=== PATIENT | male | born 1940 | race Caucasian/White ===

== ENCOUNTER → 2017-01-12 | Outpatient (REF) | payer OTHER, MEDICARE ==
[~2017-01-12] MED LIST: /AUGM875TA OR; /MOM400 PO; ALEVE PO; BABY81CH PO; CIPR500T4 OR; CIPR500T89 PO; CLON0.5T OR; DOCU100C PO; FLEEENE4 PR; GLYB5TAB5 PO; METF500T4 PO; MIRA255PW PO; MULTIVIT PO; NORCOTAB PO; OXYB5TAB4 OR; OXYB5TAB5 OR; PRIN10TA PO; RAPAFLO PO; VYTO10TA5 OR; VYTO10TA5 PO
[2017-01-12 11:45] LABS: MEAN CORPUSCULAR HEMOGLOBIN 29.4 pg (27.0-33.0); MEAN CORPUSCULAR HGB CONC 34.6 g/dl (32.0-36.5); WHITE BLOOD COUNT 6.8 K/mm3 (4.0-10.0)
[2017-01-12 12:48] LABS: ALBUMIN 4.2 GM/DL (3.2-5.2); ALBUMIN/GLOBULIN RATIO 1.24 (1.00-1.93); ALKALINE PHOSPHATASE 67 U/L (45-117); ALT/SGPT 26 U/L (12-78); ANION GAP 8 MEQ/L (8-16); AST/SGOT 16 U/L (15-37); BILIRUBIN,TOTAL 0.4 MG/DL (0.2-1.0); BLOOD UREA NITROGEN 20 MG/DL (7-18); CALCIUM LEVEL 9.3 MG/DL (8.8-10.2); CARBON DIOXIDE LEVEL 29 MEQ/L (21-32); CHLORIDE LEVEL 102 MEQ/L (98-107); CHOLESTEROL LEVEL 136 MG/DL (<200); CREATININE FOR GFR 1.22 MG/DL (0.70-1.30); GLOMERULAR FILTRATION RATE > 60.0 (>42); GLUCOSE, FASTING 176 MG/DL (83-110); SODIUM LEVEL 139 MEQ/L (136-145); TOTAL PROTEIN 7.6 GM/DL (6.4-8.2); TRIGLYCERIDES LEVEL 242 MG/DL (<150)
== END ==
LOC: M SFHCPLAZ 10:02
PROVIDERS: ATTEND Family Medicine
DX: N18.3 Chronic kidney disease, stage 3 (moderate) (principal); E11.21 Type 2 diabetes mellitus with diabetic nephropathy; E78.5 Hyperlipidemia, unspecified

== ENCOUNTER → 2017-07-07 | Outpatient (REF) | payer OTHER, MEDICARE | LOC: M SFHCPLAZ 08:58 | PROVIDERS: ATTEND Family Medicine | DX: E11.21 Type 2 diabetes mellitus with diabetic nephropathy (principal) ==

== ENCOUNTER → 2017-11-21 | Outpatient (REF) | payer OTHER, MEDICARE ==
[2017-11-21 14:12] LABS: FERRITIN 46 NG/ML (26-388); IRON (FE) 128 UG/DL (65-175); PERCENT SATURATION 38.8 % (19.7-50.0); TOTAL IRON BINDING CAPACITY 330 UG/DL (250-450)
== END ==
LOC: M LAB REF 12:52
DX: N18.9 Chronic kidney disease, unspecified (principal); D63.1 Anemia in chronic kidney disease

== ENCOUNTER → 2018-01-04 | Outpatient (REF) | payer OTHER, MEDICARE ==
[2018-01-04 16:20] LABS: PROSTATIC SPECIFIC AG MONITOR < 0.01 NG/ML (< 4.0)
== END ==
LOC: M SMT 15:46
DX: Z85.46 Personal history of malignant neoplasm of prostate (principal)

== ENCOUNTER → 2018-03-15 | Outpatient (REF) | payer OTHER, MEDICARE ==
[2018-03-15 23:41] LABS: BLOOD UREA NITROGEN 28 MG/DL (7-18); CREATININE FOR GFR 1.35 MG/DL (0.70-1.30); GLOMERULAR FILTRATION RATE 54.8 (>42); GLUCOSE, FASTING 198 MG/DL (70-100); SODIUM LEVEL 138 MEQ/L (136-145)
[2018-03-15 23:42] LABS: ANION GAP 6 MEQ/L (8-16); CALCIUM LEVEL 8.7 MG/DL (8.8-10.2); CARBON DIOXIDE LEVEL 26 MEQ/L (21-32); CHLORIDE LEVEL 106 MEQ/L (98-107); POTASSIUM SERUM 5.5 MEQ/L (3.5-5.1)
[2018-03-16 23:29] LABS: ESTIMATED AVERAGE GLUCOSE 194 MG/DL (60-110); HEMOGLOBIN A1c 8.4 %
== END ==
LOC: M SFHCPLAZ 09:38
DX: E11.21 Type 2 diabetes mellitus with diabetic nephropathy (principal); N18.3 Chronic kidney disease, stage 3 (moderate)

== ENCOUNTER → 2018-03-20 | Outpatient (REF) | payer OTHER, MEDICARE ==
[2018-03-20 16:22] LABS: ANION GAP 8 MEQ/L (8-16); BLOOD UREA NITROGEN 23 MG/DL (7-18); CARBON DIOXIDE LEVEL 28 MEQ/L (21-32); CHLORIDE LEVEL 103 MEQ/L (98-107); CREATININE FOR GFR 1.23 MG/DL (0.70-1.30); GLOMERULAR FILTRATION RATE > 60.0 (>42); GLUCOSE, FASTING 103 MG/DL (70-100); SODIUM LEVEL 139 MEQ/L (136-145)
== END ==
LOC: M SFHCPLAZ 13:27
DX: E87.5 Hyperkalemia (principal)
CPT/HCPCS: 80048

== ENCOUNTER → 2018-06-29 | Outpatient (REF) | payer OTHER, MEDICARE ==
[2018-06-29 20:03] LABS: APPEARANCE, URINE CLOUDY (CLEAR); BACTERIA, URINE AUTO 2+ (NEGATIVE); BILIRUBIN, URINE AUTO NEGATIVE (NEGATIVE); BLOOD, URINE BLOOD 1+ (NEGATIVE); COLOR, URINE YELLOW (YELLOW); GLUCOSE, URINE (UA) AUTO 3+ mg/dL (NEGATIVE); KETONE, URINE AUTO NEGATIVE (NEGATIVE); LEUKOCYTE ESTERASE, URINE AUTO 3+ (NEGATIVE); MUCUS, URINE SMALL (NEGATIVE); NITRITE, URINE AUTO NEGATIVE (NEGATIVE); PROTEIN, URINE AUTO NEGATIVE (NEGATIVE); RBC, URINE AUTO 15 /HPF (0-3); SPECIFIC GRAVITY URINE AUTO 1.011 (1.002-1.035); SQUAMOUS EPITHELIAL CELL UR AU 0 /HPF (0-6); UROBILINOGEN, URINE AUTO 0.2 mg/dL (0.0-2.0); WBC, URINE AUTO TNTC /HPF (0-3)
== END ==
LOC: M SMT 17:02
DX: R82.90 Unspecified abnormal findings in urine (principal)

== ENCOUNTER → 2018-08-18 | Outpatient (REF) | payer OTHER, MEDICARE | LOC: M SMT 17:10 | DX: N31.9 Neuromuscular dysfunction of bladder, unspecified (principal) | CPT/HCPCS: 87186 ==

== ENCOUNTER → 2018-09-11 | Outpatient (REF) | payer OTHER, MEDICARE ==
[2018-09-11 18:18] LABS: APPEARANCE, URINE CLOUDY (CLEAR); BACTERIA, URINE AUTO 2+ (NEGATIVE); BILIRUBIN, URINE AUTO NEGATIVE (NEGATIVE); BLOOD, URINE BLOOD 2+ (NEGATIVE); COLOR, URINE YELLOW (YELLOW); GLUCOSE, URINE (UA) AUTO NEGATIVE (NEGATIVE); KETONE, URINE AUTO NEGATIVE (NEGATIVE); LEUKOCYTE ESTERASE, URINE AUTO 3+ (NEGATIVE); MUCUS, URINE SMALL (NEGATIVE); NITRITE, URINE AUTO NEGATIVE (NEGATIVE); PROTEIN, URINE AUTO 2+ mg/dL (NEGATIVE); RBC, URINE AUTO 44 /HPF (0-3); SPECIFIC GRAVITY URINE AUTO 1.016 (1.002-1.035); SQUAMOUS EPITHELIAL CELL UR AU 0 /HPF (0-6); UROBILINOGEN, URINE AUTO 0.2 mg/dL (0.0-2.0); WBC, URINE AUTO TNTC /HPF (0-3); YEAST LIKE CELL URINE AUTO SMALL
[2018-09-14 08:06] LABS: BETA 2 MICROGLOBULIN 2.4 mg/L (0.6-2.4)
== END ==
LOC: M SFHCPLAZ 08:53
DX: N39.0 Urinary tract infection, site not specified (principal); E78.5 Hyperlipidemia, unspecified; N31.9 Neuromuscular dysfunction of bladder, unspecified
CPT/HCPCS: 82232

== ENCOUNTER → 2018-09-13 | Outpatient (REF) | payer OTHER, MEDICARE ==
[2018-09-13 12:46] LABS: BASO % 0.5 % (0.0-1.0); EOS # 0.2 10^3/uL (0.0-0.50); EOS % 2.1 % (0.0-3.0); HEMATOCRIT 36.4 % (42.0-52.0); HEMOGLOBIN 12.1 g/dl (13.5-17.5); IMMATURE GRANULOCYTE % 0.7 % (0-3.0); LYMPH # 1.5 10^3/uL (1.5-4.5); MEAN CORPUSCULAR HGB CONC 33.2 g/dl (32.0-36.5); MEAN CORPUSCULAR VOLUME 90.1 fl (80.0-96.0); MONO # 0.7 10^3/uL (0.0-0.8); MONO % 9.5 % (0.0-5.0); NEUTROPHILS # 5.2 10^3/uL (1.8-7.7); NEUTROPHILS % 67.2 % (36.0-66.0); PLATELET COUNT, AUTOMATED 280 10^3/uL (150-450); RED BLOOD COUNT 4.04 10^6/uL (4.30-6.10); RED CELL DISTRIBUTION WIDTH 12.8 % (11.5-14.5); WHITE BLOOD COUNT 7.7 10^3/uL (4.0-10.0)
[2018-09-13 12:53] LABS: ALBUMIN 3.8 GM/DL (3.2-5.2); ALBUMIN/GLOBULIN RATIO 1.15 (1.00-1.93); ALKALINE PHOSPHATASE 54 U/L (45-117); ALT/SGPT 24 U/L (12-78); ANION GAP 7 MEQ/L (8-16); AST/SGOT 13 U/L (7-37); BILIRUBIN,TOTAL 0.3 MG/DL (0.2-1.0); BLOOD UREA NITROGEN 20 MG/DL (7-18); CALCIUM LEVEL 8.4 MG/DL (8.8-10.2); CARBON DIOXIDE LEVEL 25 MEQ/L (21-32); CHLORIDE LEVEL 108 MEQ/L (98-107); CHOLESTEROL LEVEL 123 MG/DL (<200); CPK CREATINE PHOSPHOKINASE 73 U/L (39-308); CREATININE FOR GFR 1.23 MG/DL (0.70-1.30); FERRITIN 67 NG/ML (26-388); GLOMERULAR FILTRATION RATE > 60.0 (>42); GLUCOSE, FASTING 122 MG/DL (70-100); HDL CHOLESTEROL 26 MG/DL (>40); IRON (FE) 73 UG/DL (65-175); LDL CHOLESTEROL 52 MG/DL (<100); NON-HDL-C 97 MG/DL; PERCENT SATURATION 23.3 % (19.7-50.0); POTASSIUM SERUM 5.3 MEQ/L (3.5-5.1); SODIUM LEVEL 140 MEQ/L (136-145); TOTAL IRON BINDING CAPACITY 313 UG/DL (250-450); TOTAL PROTEIN 7.1 GM/DL (6.4-8.2); TRIGLYCERIDES LEVEL 225 MG/DL (<150)
[2018-09-13 13:00] LABS: VITAMIN B12 LEVEL 380 PG/ML (247-911)
[2018-09-13 14:04] LABS: ESTIMATED AVERAGE GLUCOSE 169 MG/DL (60-110); HEMOGLOBIN A1c 7.5 %
[2018-09-15 00:06] LABS: BETA 2 MICROGLOBULIN 2.6 mg/L (0.6-2.4)
== END ==
LOC: M SFHCPLAZ 08:50
DX: E11.21 Type 2 diabetes mellitus with diabetic nephropathy (principal); I11.9 Hypertensive heart disease without heart failure; N18.3 Chronic kidney disease, stage 3 (moderate); E78.5 Hyperlipidemia, unspecified; D63.8 Anemia in other chronic diseases classified elsewhere

== ENCOUNTER 2018-09-21 15:37 | Inpatient (IN) | payer OTHER, MEDICARE ==
[2018-09-21] MEDS: HumaLOG INSULIN (NovoLOG) PER UNIT SC (02:39)
[2018-09-21] MEDS ORDERED: MORPHINE 4 MG/ML 1ML VIAL/SYRINGE (J2270) IV ×2 (16:15→22:00)
[2018-09-21 17:35] LABS: BASO % 0.4 % (0.0-1.0); EOS # 0.2 10^3/uL (0.0-0.50); HEMOGLOBIN 12.7 g/dl (13.5-17.5); IMMATURE GRANULOCYTE % 0.4 % (0-3.0); LYMPH # 1.3 10^3/uL (1.5-4.5); LYMPH % 16.8 % (24.0-44.0); MEAN CORPUSCULAR HGB CONC 33.4 g/dl (32.0-36.5); MEAN CORPUSCULAR VOLUME 89.6 fl (80.0-96.0); MONO # 0.5 10^3/uL (0.0-0.8); MONO % 7.2 % (0.0-5.0); NEUTROPHILS # 5.5 10^3/uL (1.8-7.7); NEUTROPHILS % 73.2 % (36.0-66.0); PLATELET COUNT, AUTOMATED 304 10^3/uL (150-450); RED BLOOD COUNT 4.24 10^6/uL (4.30-6.10); RED CELL DISTRIBUTION WIDTH 13.2 % (11.5-14.5); WHITE BLOOD COUNT 7.5 10^3/uL (4.0-10.0)
[2018-09-21] MEDS: NS 1,000 ML IV (17:47)
[2018-09-21 18:02] LABS: ALBUMIN 4.2 GM/DL (3.2-5.2); ALBUMIN/GLOBULIN RATIO 1.27 (1.00-1.93); ALKALINE PHOSPHATASE 65 U/L (45-117); ALT/SGPT 24 U/L (12-78); ANION GAP 8 MEQ/L (8-16); AST/SGOT 19 U/L (7-37); BILIRUBIN,DIRECT < 0.1 MG/DL (0.0-0.2); BILIRUBIN,TOTAL 0.3 MG/DL (0.2-1.0); BLOOD UREA NITROGEN 29 MG/DL (7-18); CALCIUM LEVEL 8.6 MG/DL (8.8-10.2); CARBON DIOXIDE LEVEL 22 MEQ/L (21-32); CHLORIDE LEVEL 106 MEQ/L (98-107); GLOMERULAR FILTRATION RATE 39.2 (>42); GLUCOSE, FASTING 171 MG/DL (70-100); LIPASE 283 U/L (73-393); POTASSIUM SERUM 6.4 MEQ/L (3.5-5.1); SODIUM LEVEL 136 MEQ/L (136-145); TOTAL PROTEIN 7.5 GM/DL (6.4-8.2)
[2018-09-21 20:00] LABS: KETONE, URINE AUTO RFX NEGATIVE (NEGATIVE); NITRITE, URINE AUTO RFX NEGATIVE (NEGATIVE); RBC, URINE AUTO RFX 21 /HPF (0-3); SPECIFIC GRAVITY UR AUTO RFX 1.015 (1.002-1.035); SQUAM EPITHELIAL CELL UR AURFX 0 /HPF (0-6); YEAST LIKE CELL URINE AUTO RFX SMALL
[2018-09-21 20:03] LABS: LEUKOCYTE ESTERASE UR AUTO RFX 3+ (NEGATIVE); WBC, URINE AUTO RFX TNTC /HPF (0-3)
[2018-09-21] MEDS: SOD POLYSTYRENE SULFONATE SUSP 15 GM/60 ML UD PO (20:20)
[2018-09-21] MEDS ORDERED: GLUCAGON FOR INJ 1 MG VIAL (J1610) SC (22:00)
[2018-09-21] MEDS: HEPARIN SOD (PORCINE) 5000 UNITS/ML VIAL SC (22:00)
[2018-09-21] MEDS ORDERED: DEXTROSE 50% 50 ML SYRINGE IV (22:00)
[2018-09-21] MEDS ORDERED: ACETAMINOPHEN TAB 650MG DOSE (2X325MG) PO (22:00)
[2018-09-21] MEDS ORDERED: PERCOCET 5MG/325MG TAB PO (22:00)
[2018-09-21] MEDS ORDERED: GLUCOSE 4 GM CHEW TABLET PO (22:00)
[2018-09-21 23:59] LABS: ANION GAP 7 MEQ/L (8-16); BLOOD UREA NITROGEN 26 MG/DL (7-18); CARBON DIOXIDE LEVEL 20 MEQ/L (21-32); CHLORIDE LEVEL 112 MEQ/L (98-107); CREATININE FOR GFR 1.61 MG/DL (0.70-1.30); GLOMERULAR FILTRATION RATE 44.6 (>42); GLUCOSE, FASTING 239 MG/DL (70-100); POTASSIUM SERUM 5.3 MEQ/L (3.5-5.1); SODIUM LEVEL 139 MEQ/L (136-145)
[2018-09-22 02:15] LABS: BEDSIDE GLUCOSE 146 MG/DL (83-110)
[2018-09-22] MEDS: SIMVASTATIN 40 MG TAB PO ×2 (03:06→20:24)
[2018-09-22] MEDS: ASPIRIN 81 MG ENTERIC TAB PO ×2 (03:06→20:24)
[2018-09-22] MEDS: LACTOBACILLUS ACIDOPHILUS CAP (BACID) PO ×3 (03:06→20:24)
[2018-09-22] MEDS: NS 1,000 ML IV ×4 (03:07→17:56)
[2018-09-22] MEDS: HEPARIN SOD (PORCINE) 5000 UNITS/ML VIAL SC ×3 (05:14→20:25)
[2018-09-22 06:45] LABS: HEMATOCRIT 31.4 % (42.0-52.0); MEAN CORPUSCULAR HEMOGLOBIN 29.6 pg (27.0-33.0); MEAN CORPUSCULAR HGB CONC 33.8 g/dl (32.0-36.5); MEAN CORPUSCULAR VOLUME 87.7 fl (80.0-96.0); PLATELET COUNT, AUTOMATED 241 10^3/uL (150-450); RED BLOOD COUNT 3.58 10^6/uL (4.30-6.10); RED CELL DISTRIBUTION WIDTH 12.8 % (11.5-14.5); WHITE BLOOD COUNT 5.8 10^3/uL (4.0-10.0)
[2018-09-22 06:54] LABS: HEMOGLOBIN 10.6 g/dl (13.5-17.5)
[2018-09-22 07:15] LABS: ANION GAP 6 MEQ/L (8-16); BLOOD UREA NITROGEN 21 MG/DL (7-18); CARBON DIOXIDE LEVEL 24 MEQ/L (21-32); CHLORIDE LEVEL 112 MEQ/L (98-107); CREATININE FOR GFR 1.38 MG/DL (0.70-1.30); GLOMERULAR FILTRATION RATE 53.3 (>42); GLUCOSE, FASTING 113 MG/DL (70-100); POTASSIUM SERUM 4.8 MEQ/L (3.5-5.1); SODIUM LEVEL 142 MEQ/L (136-145)
[2018-09-22] MEDS: OYSTER SHELL CALCIUM 500 MG TAB PO (08:43)
[2018-09-22] MEDS: HumaLOG INSULIN (NovoLOG) PER UNIT SC ×4 (08:44→20:24)
[2018-09-22 11:31] LABS: BEDSIDE GLUCOSE 168 MG/DL (83-110)
[2018-09-22 16:49] LABS: BEDSIDE GLUCOSE 241 MG/DL (83-110)
[2018-09-22 20:07] LABS: BEDSIDE GLUCOSE 204 MG/DL (83-110)
[2018-09-23] MEDS: HEPARIN SOD (PORCINE) 5000 UNITS/ML VIAL SC ×3 (05:29→20:31)
[2018-09-23 06:23] LABS: HEMATOCRIT 32.2 % (42.0-52.0); HEMOGLOBIN 10.9 g/dl (13.5-17.5); MEAN CORPUSCULAR HEMOGLOBIN 29.9 pg (27.0-33.0); MEAN CORPUSCULAR HGB CONC 33.9 g/dl (32.0-36.5); MEAN CORPUSCULAR VOLUME 88.2 fl (80.0-96.0); PLATELET COUNT, AUTOMATED 232 10^3/uL (150-450); RED BLOOD COUNT 3.65 10^6/uL (4.30-6.10); RED CELL DISTRIBUTION WIDTH 12.6 % (11.5-14.5); WHITE BLOOD COUNT 4.6 10^3/uL (4.0-10.0)
[2018-09-23 06:48] LABS: ANION GAP 10 MEQ/L (8-16); BLOOD UREA NITROGEN 18 MG/DL (7-18); CALCIUM LEVEL 7.9 MG/DL (8.8-10.2); CARBON DIOXIDE LEVEL 22 MEQ/L (21-32); CHLORIDE LEVEL 110 MEQ/L (98-107); CREATININE FOR GFR 1.08 MG/DL (0.70-1.30); GLOMERULAR FILTRATION RATE > 60.0 (>42); GLUCOSE, FASTING 151 MG/DL (70-100); POTASSIUM SERUM 4.7 MEQ/L (3.5-5.1); SODIUM LEVEL 142 MEQ/L (136-145)
[2018-09-23 07:36] LABS: ALBUMIN 3.3 GM/DL (3.2-5.2)
[2018-09-23] MEDS: HumaLOG INSULIN (NovoLOG) PER UNIT SC ×4 (08:43→20:30)
[2018-09-23] MEDS: LACTOBACILLUS ACIDOPHILUS CAP (BACID) PO ×2 (08:43→20:30)
[2018-09-23] MEDS: FERROUS SULFATE 325MG TAB PO (08:43)
[2018-09-23 11:24] LABS: BEDSIDE GLUCOSE 153 MG/DL (83-110)
[2018-09-23] MEDS: CALCIUM CARBONATE 500 MG CHEW U/D PO (13:06)
[2018-09-23 14:13] LABS: PSA TOTAL <0.1 ng/mL (0.0-4.0)
[2018-09-23 16:29] LABS: BEDSIDE GLUCOSE 196 MG/DL (83-110)
[2018-09-23 20:22] LABS: BEDSIDE GLUCOSE 188 MG/DL (83-110)
[2018-09-23] MEDS: SIMVASTATIN 40 MG TAB PO (20:30)
[2018-09-23] MEDS: ASPIRIN 81 MG ENTERIC TAB PO (20:30)
[2018-09-24] MEDS: HEPARIN SOD (PORCINE) 5000 UNITS/ML VIAL SC ×3 (05:41→21:15)
[2018-09-24 06:16] LABS: ANION GAP 7 MEQ/L (8-16); BLOOD UREA NITROGEN 16 MG/DL (7-18); CALCIUM LEVEL 8.4 MG/DL (8.8-10.2); CARBON DIOXIDE LEVEL 24 MEQ/L (21-32); CHLORIDE LEVEL 109 MEQ/L (98-107); CREATININE FOR GFR 1.06 MG/DL (0.70-1.30); GLOMERULAR FILTRATION RATE > 60.0 (>42); GLUCOSE, FASTING 179 MG/DL (70-100); POTASSIUM SERUM 4.6 MEQ/L (3.5-5.1); SODIUM LEVEL 140 MEQ/L (136-145)
[2018-09-24 06:17] LABS: HEMATOCRIT 34.4 % (42.0-52.0); HEMOGLOBIN 11.6 g/dl (13.5-17.5); MEAN CORPUSCULAR HEMOGLOBIN 29.8 pg (27.0-33.0); MEAN CORPUSCULAR HGB CONC 33.7 g/dl (32.0-36.5); MEAN CORPUSCULAR VOLUME 88.4 fl (80.0-96.0); PLATELET COUNT, AUTOMATED 256 10^3/uL (150-450); RED BLOOD COUNT 3.89 10^6/uL (4.30-6.10); RED CELL DISTRIBUTION WIDTH 12.8 % (11.5-14.5)
[2018-09-24] MEDS: HumaLOG INSULIN (NovoLOG) PER UNIT SC ×4 (07:58→21:15)
[2018-09-24] MEDS: OYSTER SHELL CALCIUM 500 MG TAB PO (07:59)
[2018-09-24] MEDS: LACTOBACILLUS ACIDOPHILUS CAP (BACID) PO ×2 (07:59→20:11)
[2018-09-24] MEDS: CALCIUM CARBONATE 500 MG CHEW U/D PO (07:59)
[2018-09-24 11:43] LABS: BEDSIDE GLUCOSE 186 MG/DL (83-110)
[2018-09-24 17:05] LABS: BEDSIDE GLUCOSE 288 MG/DL (83-110)
[2018-09-24] MEDS: SIMVASTATIN 40 MG TAB PO (20:11)
[2018-09-24] MEDS: ASPIRIN 81 MG ENTERIC TAB PO (20:11)
[2018-09-24 20:47] LABS: BEDSIDE GLUCOSE 266 MG/DL (83-110)
[2018-09-25] MEDS: HEPARIN SOD (PORCINE) 5000 UNITS/ML VIAL SC (05:22)
[2018-09-25 05:57] LABS: HEMATOCRIT 32.2 % (42.0-52.0); HEMOGLOBIN 11.2 g/dl (13.5-17.5); MEAN CORPUSCULAR HGB CONC 34.8 g/dl (32.0-36.5); MEAN CORPUSCULAR VOLUME 86.3 fl (80.0-96.0); PLATELET COUNT, AUTOMATED 250 10^3/uL (150-450); RED BLOOD COUNT 3.73 10^6/uL (4.30-6.10); RED CELL DISTRIBUTION WIDTH 12.6 % (11.5-14.5); WHITE BLOOD COUNT 5.6 10^3/uL (4.0-10.0)
[2018-09-25 06:14] LABS: ANION GAP 6 MEQ/L (8-16); BLOOD UREA NITROGEN 17 MG/DL (7-18); CALCIUM LEVEL 8.6 MG/DL (8.8-10.2); CARBON DIOXIDE LEVEL 25 MEQ/L (21-32); CHLORIDE LEVEL 108 MEQ/L (98-107); CREATININE FOR GFR 1.21 MG/DL (0.70-1.30); GLOMERULAR FILTRATION RATE > 60.0 (>42); GLUCOSE, FASTING 201 MG/DL (70-100); POTASSIUM SERUM 4.5 MEQ/L (3.5-5.1); SODIUM LEVEL 139 MEQ/L (136-145)
[2018-09-25] MEDS: CALCIUM CARBONATE 500 MG CHEW U/D PO (08:31)
[2018-09-25] MEDS: LACTOBACILLUS ACIDOPHILUS CAP (BACID) PO (08:31)
[2018-09-25] MEDS: HumaLOG INSULIN (NovoLOG) PER UNIT SC ×2 (08:31→12:00)
[2018-09-25] MEDS: FERROUS SULFATE 325MG TAB PO (08:31)
== END 2018-09-25 12:08 | disposition home or self-care (01) | DRG 729 ==
LOC: M MSPAV 09-22 02:00 → M ED 15:37 → M ED INP 21:56
DX: N50.811 Right testicular pain (principal); N17.9 Acute kidney failure, unspecified; I50.32 Chronic diastolic (congestive) heart failure; A08.39 Other viral enteritis; E11.9 Type 2 diabetes mellitus without complications; E87.5 Hyperkalemia; D50.9 Iron deficiency anemia, unspecified; Z86.73 Personal history of transient ischemic attack (TIA), and cerebral infarction without residual deficits; Z85.46 Personal history of malignant neoplasm of prostate; K40.90 Unilateral inguinal hernia, without obstruction or gangrene, not specified as recurrent; Z79.899 Other long term (current) drug therapy; Z79.82 Long term (current) use of aspirin; E78.5 Hyperlipidemia, unspecified; R19.7 Diarrhea, unspecified

== ENCOUNTER → 2018-09-21 | Outpatient (REF) | payer OTHER | LOC: M SMT 16:49 | DX: N39.0 Urinary tract infection, site not specified (principal) | CPT/HCPCS: 87086 ==

== ENCOUNTER 2018-10-04 16:26 | Emergency (ER) | payer OTHER, MEDICARE ==
[2018-10-04 17:57] LABS: APPEARANCE, URINE TURBID (CLEAR); BACTERIA, URINE AUTO 3+ (NEGATIVE); BILIRUBIN, URINE AUTO NEGATIVE (NEGATIVE); BLOOD, URINE BLOOD 3+ (NEGATIVE); COLOR, URINE YELLOW (YELLOW); GLUCOSE, URINE (UA) AUTO NEGATIVE (NEGATIVE); KETONE, URINE AUTO TRACE mg/dL (NEGATIVE); LEUKOCYTE ESTERASE, URINE AUTO 3+ (NEGATIVE); NITRITE, URINE AUTO NEGATIVE (NEGATIVE); PROTEIN, URINE AUTO 2+ mg/dL (NEGATIVE); RBC, URINE AUTO TNTC /HPF (0-3); SPECIFIC GRAVITY URINE AUTO 1.015 (1.002-1.035); SQUAMOUS EPITHELIAL CELL UR AU 0 /HPF (0-6); UROBILINOGEN, URINE AUTO 0.2 mg/dL (0.0-2.0); WBC, URINE AUTO TNTC /HPF (0-3); YEAST LIKE CELL URINE AUTO SMALL
[2018-10-04 20:21] LABS: INR 0.94; PROTHROMBIN TIME 12.7 SECONDS (12.1-14.4)
[2018-10-04 20:22] LABS: PARTIAL THROMBOPLASTIN TIME 20.1 SECONDS (25.4-37.6)
[2018-10-04 20:29] LABS: ALBUMIN 4.1 GM/DL (3.2-5.2); ALBUMIN/GLOBULIN RATIO 1.11 (1.00-1.93); ALKALINE PHOSPHATASE 62 U/L (45-117); ALT/SGPT 44 U/L (12-78); ANION GAP 8 MEQ/L (8-16); AST/SGOT 32 U/L (7-37); BILIRUBIN,DIRECT < 0.1 MG/DL (0.0-0.2); BILIRUBIN,TOTAL 0.3 MG/DL (0.2-1.0); BLOOD UREA NITROGEN 36 MG/DL (7-18); C REACTIVE PROTEIN QUANTITATIV < 0.30 MG/DL (0.00-0.30); CALCIUM LEVEL 9.2 MG/DL (8.8-10.2); CARBON DIOXIDE LEVEL 22 MEQ/L (21-32); CHLORIDE LEVEL 106 MEQ/L (98-107); CREATININE FOR GFR 1.82 MG/DL (0.70-1.30); GLOMERULAR FILTRATION RATE 38.8 (>42); GLUCOSE, FASTING 118 MG/DL (70-100); POTASSIUM SERUM 4.9 MEQ/L (3.5-5.1); SODIUM LEVEL 136 MEQ/L (136-145); TOTAL PROTEIN 7.8 GM/DL (6.4-8.2)
[2018-10-04 21:02] LABS: BASO % 0.1 % (0.0-1.0); EOS % 0.2 % (0.0-3.0); HEMATOCRIT 33.2 % (42.0-52.0); HEMOGLOBIN 11.4 g/dl (13.5-17.5); IMMATURE GRANULOCYTE % 0.4 % (0-3.0); LYMPH # 1.1 10^3/uL (1.5-4.5); LYMPH % 11.1 % (24.0-44.0); MEAN CORPUSCULAR HEMOGLOBIN 30.1 pg (27.0-33.0); MEAN CORPUSCULAR HGB CONC 34.3 g/dl (32.0-36.5); MEAN CORPUSCULAR VOLUME 87.6 fl (80.0-96.0); MONO # 1.1 10^3/uL (0.0-0.8); MONO % 10.6 % (0.0-5.0); NEUTROPHILS # 7.9 10^3/uL (1.8-7.7); NEUTROPHILS % 77.6 % (36.0-66.0); PLATELET COUNT, AUTOMATED 226 10^3/uL (150-450); RED BLOOD COUNT 3.79 10^6/uL (4.30-6.10); RED CELL DISTRIBUTION WIDTH 12.6 % (11.5-14.5); WHITE BLOOD COUNT 10.2 10^3/uL (4.0-10.0)
[2018-10-04 21:28] LABS: ERYTHROCYTE SEDIMENTATION RATE 19 mm/hr (0-20)
[2018-10-04] MEDS: CIPROFLOXACIN 500 MG TAB PO (21:30)
== END 2018-10-04 22:17 | disposition home or self-care (01) ==
LOC: M ED 16:26
DX: N30.00 Acute cystitis without hematuria (principal); N48.89 Other specified disorders of penis; Z96.0 Presence of urogenital implants; E11.9 Type 2 diabetes mellitus without complications; I10 Essential (primary) hypertension; E78.5 Hyperlipidemia, unspecified; M54.9 Dorsalgia, unspecified; F41.9 Anxiety disorder, unspecified; F32.9 Major depressive disorder, single episode, unspecified; Z85.46 Personal history of malignant neoplasm of prostate; J38.3 Other diseases of vocal cords; Z86.73 Personal history of transient ischemic attack (TIA), and cerebral infarction without residual deficits; A48.1 Legionnaires' disease; Z79.82 Long term (current) use of aspirin; Z79.899 Other long term (current) drug therapy; Z79.891 Long term (current) use of opiate analgesic
CPT/HCPCS: 76870

== ENCOUNTER → 2018-10-04 | Outpatient (REF) | payer OTHER, MEDICARE ==
[~2018-10-04] MED LIST changes: +ASPI81TA85 PO; +ASPI81TAEC PO; +BACITAB PO; +CALC500C16 PO; +CALC500T36 PO; +CIPR-249 PO; +FERR325T3 PO; +GLIP5TAB8 PO; +GLYB25TA PO; +LISI10TA2 PO; +METF-877 PO; +SIMV40TA2; +SIMV40TA2 PO; +TRAM50TA2; +ZYVO1TAB PO; +probiotic
[2018-10-04 14:03] LABS: BASO % 0.4 % (0.0-1.0); EOS % 0.3 % (0.0-3.0); HEMATOCRIT 39.1 % (42.0-52.0); HEMOGLOBIN 13.1 g/dl (13.5-17.5); LYMPH # 0.6 10^3/uL (1.5-4.5); LYMPH % 6.7 % (24.0-44.0); MEAN CORPUSCULAR HEMOGLOBIN 29.5 pg (27.0-33.0); MEAN CORPUSCULAR HGB CONC 33.5 g/dl (32.0-36.5); MEAN CORPUSCULAR VOLUME 88.1 fl (80.0-96.0); MONO # 0.5 10^3/uL (0.0-0.8); MONO % 5.5 % (0.0-5.0); NEUTROPHILS # 7.8 10^3/uL (1.8-7.7); NEUTROPHILS % 86.3 % (36.0-66.0); PLATELET COUNT, AUTOMATED 297 10^3/uL (150-450); RED BLOOD COUNT 4.44 10^6/uL (4.30-6.10)
[2018-10-04 14:28] LABS: ALBUMIN 4.4 GM/DL (3.2-5.2); BILIRUBIN,TOTAL 0.5 MG/DL (0.2-1.0); CALCIUM LEVEL 9.2 MG/DL (8.8-10.2); CREATININE FOR GFR 1.8 MG/DL (0.70-1.30); GLOMERULAR FILTRATION RATE 39.2 (>42); POTASSIUM SERUM 4.4 MEQ/L (3.5-5.1); TOTAL PROTEIN 8.1 GM/DL (6.4-8.2)
== END ==
LOC: M SFHCPLAZ 11:25
PROVIDERS: ATTEND Physician Assistant Medical
DX: N18.3 Chronic kidney disease, stage 3 (moderate) (principal)

== ENCOUNTER → 2018-12-14 | Outpatient (REF) | payer OTHER, MEDICARE ==
[2018-12-14 16:25] LABS: HEMOGLOBIN A1c 7.5 %
== END ==
LOC: M SFHCPLAZ 14:29
PROVIDERS: ATTEND Family Medicine
DX: E11.21 Type 2 diabetes mellitus with diabetic nephropathy (principal)

== ENCOUNTER → 2019-03-15 | Outpatient (REF) | payer OTHER, MEDICARE ==
[~2019-03-15] MED LIST changes: -/MOM400 PO; +CALC12504 PO; -CALC500T36 PO; +MILK10SU PO; -MIRA255PW PO; +POLY1POW4 PO
[2019-03-15 13:30] LABS: CALCIUM LEVEL 8.9 MG/DL (8.8-10.2); CHOLESTEROL RISK RATIO 4.129 (<5); CREATININE FOR GFR 1.35 MG/DL (0.70-1.30); GLOMERULAR FILTRATION RATE 54.7 (>42); POTASSIUM SERUM 5.1 MEQ/L (3.5-5.1)
[2019-03-15 15:11] LABS: HEMOGLOBIN A1c 8.3 %
== END ==
LOC: M SFHCPLAZ 09:13
PROVIDERS: ATTEND Family Medicine
DX: E11.21 Type 2 diabetes mellitus with diabetic nephropathy (principal); E78.5 Hyperlipidemia, unspecified; I11.9 Hypertensive heart disease without heart failure

== ENCOUNTER → 2019-06-15 | Outpatient (REF) | payer OTHER, MEDICARE ==
[~2019-06-15] MED LIST changes: -CALC12504 PO; +CALC500T61 PO; +LISI10TA15 PO; -LISI10TA2 PO; -SIMV40TA2; -SIMV40TA2 PO; +SIMV40TA20; +SIMV40TA20 PO
[2019-06-15 10:37] LABS: BLOOD UREA NITROGEN 20 MG/DL (7-18); CALCIUM LEVEL 8.9 MG/DL (8.8-10.2); CARBON DIOXIDE LEVEL 29 MEQ/L (21-32); CHLORIDE LEVEL 105 MEQ/L (98-107); CREATININE FOR GFR 1.19 MG/DL (0.70-1.30); GLOMERULAR FILTRATION RATE > 60.0 (>42); GLUCOSE, FASTING 158 MG/DL (70-100); POTASSIUM SERUM 5.1 MEQ/L (3.5-5.1); SODIUM LEVEL 139 MEQ/L (136-145)
[2019-06-15 10:56] LABS: HEMOGLOBIN A1c 8.7 %
== END ==
LOC: M SFHCPLAZ 07:53
PROVIDERS: ATTEND Family Medicine
DX: E11.21 Type 2 diabetes mellitus with diabetic nephropathy (principal); I11.9 Hypertensive heart disease without heart failure; N18.3 Chronic kidney disease, stage 3 (moderate)

== ENCOUNTER → 2019-07-27 | Outpatient (REF) | payer OTHER, MEDICARE ==
[~2019-07-27] MED LIST changes: +SIMV40TA2; +SIMV40TA2 PO; -SIMV40TA20; -SIMV40TA20 PO
== END ==
LOC: M SFHCPLAZ 15:23
PROVIDERS: ATTEND Family Medicine
DX: L02.01 Cutaneous abscess of face (principal)

== ENCOUNTER → 2019-08-30 | Outpatient (REF) | payer OTHER, MEDICARE ==
[2019-08-30 18:46] LABS: APPEARANCE, URINE MANUAL HAZY (CLEAR); COLOR, URINE MANUAL YELLOW (YELLOW)
[2019-08-30 18:47] LABS: BILIRUBIN, URINE MANUAL NEGATIVE (NEGATIVE); GLUCOSE, URINE (UA) MANUAL 2+(250 MG/DL) mg/dL (NEGATIVE); KETONE, URINE MANUAL NEGATIVE (NEGATIVE); PROTEIN, URINE MANUAL TRACE mg/dL (NEGATIVE); SPECIFIC GRAVITY,URINE MANUAL 1.025 (1.002-1.035); UROBILINOGEN, URINE MANUAL NORMAL (NORMAL)
[2019-08-30 18:48] LABS: BLOOD URINE MANUAL POSITIVE (NEGATIVE); LEUKOCYTE ESTERASE, URINE MAN POSITIVE (NEGATIVE); NITRITE, URINE MANUAL NEGATIVE (NEGATIVE)
[2019-08-30 18:49] LABS: RBC, URINE NONE SEEN /hpf (0-3)
[2019-08-30 18:50] LABS: BACTERIA, URINE SMALL AMOUNT; HYALINE CAST, URINE NONE SEEN /lpf (0-1); SQUAMOUS EPITHELIAL CELL URINE NONE SEEN /hpf (SMALL AMT); YEAST, URINE SMALL AMOUNT
== END ==
LOC: M SMT 17:18
PROVIDERS: ATTEND Nurse Practitioner Women's Health
DX: N31.9 Neuromuscular dysfunction of bladder, unspecified (principal)

== ENCOUNTER → 2019-09-21 | Outpatient (CLI) | payer OTHER, MEDICARE ==
[~2019-09-21] MED LIST changes: -SIMV40TA2; -SIMV40TA2 PO; +SIMV40TA20; +SIMV40TA20 PO
[2019-09-21 14:07] LABS: HEMOGLOBIN 11.7 g/dl (13.5-17.5); MEAN CORPUSCULAR HEMOGLOBIN 29.6 pg (27.0-33.0); MEAN CORPUSCULAR HGB CONC 32.5 g/dl (32.0-36.5); MEAN CORPUSCULAR VOLUME 91.1 fl (80.0-96.0); PLATELET COUNT, AUTOMATED 268 10^3/uL (150-450); RED BLOOD COUNT 3.95 10^6/uL (4.30-6.10); WHITE BLOOD COUNT 6.3 10^3/uL (4.0-10.0)
[2019-09-21 14:19] LABS: BLOOD UREA NITROGEN 19 MG/DL (7-18); CALCIUM LEVEL 8.9 MG/DL (8.8-10.2); CARBON DIOXIDE LEVEL 27 MEQ/L (21-32); CHLORIDE LEVEL 105 MEQ/L (98-107); CREATININE FOR GFR 1.23 MG/DL (0.70-1.30); FERRITIN 71 NG/ML (26-388); GLOMERULAR FILTRATION RATE > 60.0 (>42); GLUCOSE, FASTING 185 MG/DL (70-100); IRON (FE) 93 UG/DL (65-175); PERCENT SATURATION 28.9 % (19.7-50.0); POTASSIUM SERUM 5.4 MEQ/L (3.5-5.1); SODIUM LEVEL 138 MEQ/L (136-145); TOTAL IRON BINDING CAPACITY 322 UG/DL (250-450)
[2019-09-21 14:25] LABS: HEMOGLOBIN A1c 8.9 %
== END ==
LOC: M PLALAB 09:01
PROVIDERS: ATTEND Family Medicine
DX: E11.22 Type 2 diabetes mellitus with diabetic chronic kidney disease (principal); D63.8 Anemia in other chronic diseases classified elsewhere; N18.3 Chronic kidney disease, stage 3 (moderate)

== ENCOUNTER → 2020-02-07 | Outpatient (REF) | payer OTHER, MEDICARE ==
[2020-02-07 17:55] LABS: BASO # 0.1 10^3/uL (0.0-0.2); BASO % 0.8 % (0.0-1.0); EOS # 0.1 10^3/uL (0.0-0.5); EOS % 1.5 % (0.0-3.0); HEMATOCRIT 38.5 % (42.0-52.0); HEMOGLOBIN 13.3 g/dl (13.5-17.5); LYMPH # 0.9 10^3/uL (1.5-5.0); LYMPH % 13.4 % (24.0-44.0); MEAN CORPUSCULAR HEMOGLOBIN 30.1 pg (27.0-33.0); MEAN CORPUSCULAR HGB CONC 34.5 g/dl (32.0-36.5); MEAN CORPUSCULAR VOLUME 87.1 fl (80.0-96.0); MONO # 0.7 10^3/uL (0.0-0.8); MONO % 10.4 % (0.0-5.0); NEUTROPHILS # 4.8 10^3/uL (1.5-8.5); NEUTROPHILS % 73.4 % (36.0-66.0); RED BLOOD COUNT 4.42 10^6/uL (4.30-6.10); WHITE BLOOD COUNT 6.6 10^3/uL (4.0-10.0)
[2020-02-07 18:10] LABS: ALBUMIN 3.7 GM/DL (3.2-5.2); BILIRUBIN,TOTAL 0.6 MG/DL (0.2-1.0); C REACTIVE PROTEIN QUANTITATIV 2.99 MG/DL (0.00-0.30); CALCIUM LEVEL 9.3 MG/DL (8.8-10.2); CREATININE FOR GFR 1.37 MG/DL (0.70-1.30); FREE T4 1.07 NG/DL (0.76-1.46); GLOMERULAR FILTRATION RATE 53.6 (>42); POTASSIUM SERUM 4.7 MEQ/L (3.5-5.1); THYROID STIMULATING HORMONE 1.32 uIU/ML (0.358-3.740); TOTAL PROTEIN 7.3 GM/DL (6.4-8.2)
[2020-02-07 19:02] LABS: ERYTHROCYTE SEDIMENTATION RATE 36 mm/hr (0-20)
== END ==
LOC: M SFHCPLAZ 13:58
PROVIDERS: ATTEND Family Medicine
DX: R43.0 Anosmia (principal); E11.21 Type 2 diabetes mellitus with diabetic nephropathy

== ENCOUNTER → 2020-02-21 | Outpatient (CLI) | payer OTHER, MEDICARE | LOC: M LABSMTC 13:03 | PROVIDERS: ATTEND Family Medicine | DX: Z20.828 Contact with and (suspected) exposure to other viral communicable diseases (principal) ==

== ENCOUNTER → 2020-02-25 | Outpatient (REF) | payer OTHER, MEDICARE ==
[2020-02-25 13:46] LABS: CHOLESTEROL RISK RATIO 3.833 (<5); PERCENT SATURATION 25.3 % (19.7-50.0)
== END ==
LOC: M SFHCPLAZ 09:11
PROVIDERS: ATTEND Family Medicine
DX: E78.2 Mixed hyperlipidemia (principal); D63.8 Anemia in other chronic diseases classified elsewhere

== ENCOUNTER → 2020-03-13 | Outpatient (CLI) | payer OTHER ==
--- NOTE | 2020-03-13 17:11 | REP ---
MAXILLOFACIAL CT STUDY WITHOUT IV CONTRAST: HISTORY: Disturbance of smell and taste. Comparison head CT study, September 04, 2013. CT FINDINGS: There is prominent vascular calcification in the distal internal carotid arteries bilaterally. Mastoid air cells are extensively pneumatized bilaterally. The medial petrous apices are pneumatized. Sphenoid, ethmoid, and frontal sinuses are clear. Mastoid aeration is normal. Ostiomeatal complexes are patent. Bony nasal septum bows slightly to the left without a septal beak. Nasal turbinate soft tissues are symmetric. The orbital and deep facial soft tissues are unremarkable. There is generalized volume loss intracranially. Charlene pino is intact. IMPRESSION: Vascular calcification. No evidence of sinusitis. Otherwise negative. Electronically Signed by Kaz Cash MD 03/14/2020 09:11 A
== END ==
LOC: M RAD 15:52
PROVIDERS: ATTEND Otolaryngology
DX: R43.9 Unspecified disturbances of smell and taste (principal)

== ENCOUNTER → 2021-03-06 | Outpatient (REF) | payer OTHER, MEDICARE ==
[~2021-03-06] MED LIST changes: +ASPI-569 PO; -ASPI81TA85 PO; +ASPI81TA86 PO; -ASPI81TAEC PO; +GLYB2.5T7 PO; -GLYB25TA PO
[2021-03-06 10:56] LABS: CHOLESTEROL RISK RATIO 3.787 (<5)
[2021-03-06 11:15] LABS: HEMOGLOBIN A1c 7.9 %
== END ==
LOC: M SFHCPLAZ 07:49
PROVIDERS: ATTEND Family Medicine
DX: E11.21 Type 2 diabetes mellitus with diabetic nephropathy (principal); E78.2 Mixed hyperlipidemia

== ENCOUNTER → 2021-03-23 | Outpatient (CLI) | payer OTHER, MEDICARE | LOC: M PLALAB 08:18 | PROVIDERS: ATTEND Nurse Practitioner Family | DX: Z85.46 Personal history of malignant neoplasm of prostate (principal) ==

== ENCOUNTER → 2021-03-24 | Outpatient (CLI) | payer OTHER ==
--- NOTE | 2021-03-24 16:15 | REP ---
INDICATION: PAIN COMPARISON: None. TECHNIQUE: AP and frog-lateral views of the left hip FINDINGS: Generalized age-related changes include increased sclerosis to the acetabulum with joint space narrowing and marginal spurring. No evidence for acute or healed injury. Surrounding soft tissues are normal. 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 <Electronically signed by Pino Correa > 03/24/21 [id number]
--- NOTE | 2021-03-24 16:31 | REP ---
INDICATION: PAIN COMPARISON: None. TECHNIQUE: AP, lateral, bilateral oblique and sunrise views. FINDINGS: The osseous structures and joint spaces are intact and essentially age-appropriate. No significant overt osteoarthritic or inflammatory arthritic changes are appreciated. There is no evidence for acute fracture or dislocation. No joint effusion is appreciated. Surrounding soft tissues are unremarkable. No subcutaneous emphysema or radiodense foreign body. IMPRESSION: Age-appropriate left knee radiographs. <Electronically signed by Pino Correa > 03/24/21 [id number]
== END ==
LOC: M WUC 15:25
PROVIDERS: ATTEND Physician Assistant
DX: M16.12 Unilateral primary osteoarthritis, left hip (principal); M79.605 Pain in left leg

== ENCOUNTER → 2021-06-01 | Outpatient (CLI) | payer OTHER, MEDICARE ==
[2021-06-01 17:53] LABS: HEMOGLOBIN A1c 9.8 %
[2021-06-01 18:02] LABS: BLOOD UREA NITROGEN 21 MG/DL (7-18); CALCIUM LEVEL 8.9 MG/DL (8.8-10.2); CARBON DIOXIDE LEVEL 28 MEQ/L (21-32); CHLORIDE LEVEL 105 MEQ/L (98-107); GLOMERULAR FILTRATION RATE > 60.0 (>42); GLUCOSE, FASTING 298 MG/DL (70-100); POTASSIUM SERUM 5.2 MEQ/L (3.5-5.1); SODIUM LEVEL 137 MEQ/L (136-145)
== END ==
LOC: M PLALAB 14:33
PROVIDERS: ATTEND Family Medicine
DX: E11.21 Type 2 diabetes mellitus with diabetic nephropathy (principal); N18.2 Chronic kidney disease, stage 2 (mild)

== ENCOUNTER → 2021-07-30 | Outpatient (CLI) | payer OTHER, MEDICARE ==
[2021-07-30 17:12] LABS: CREATININE FOR GFR 1.26 MG/DL (0.70-1.30); GLOMERULAR FILTRATION RATE 58.8 (>42); POTASSIUM SERUM 5.2 MEQ/L (3.5-5.1)
== END ==
LOC: M PLALAB 15:00
PROVIDERS: ATTEND Family Medicine
DX: E11.21 Type 2 diabetes mellitus with diabetic nephropathy (principal)

== ENCOUNTER → 2021-08-12 | Outpatient (CLI) | payer OTHER, MEDICARE ==
[2021-08-12 12:43] LABS: BLOOD UREA NITROGEN 26 MG/DL (7-18); CALCIUM LEVEL 9.7 MG/DL (8.8-10.2); CARBON DIOXIDE LEVEL 29 MEQ/L (21-32); CHLORIDE LEVEL 105 MEQ/L (98-107); CREATININE FOR GFR 1.23 MG/DL (0.70-1.30); GLOMERULAR FILTRATION RATE > 60.0 (>42); GLUCOSE, FASTING 255 MG/DL (70-100); POTASSIUM SERUM 4.7 MEQ/L (3.5-5.1); SODIUM LEVEL 140 MEQ/L (136-145)
== END ==
LOC: M PLALAB 09:19
PROVIDERS: ATTEND Family Medicine
DX: E87.5 Hyperkalemia (principal)

== ENCOUNTER → 2021-08-28 | Outpatient (CLI) | payer OTHER, MEDICARE | LOC: M PLALAB 14:16 | PROVIDERS: ATTEND Family Medicine | DX: E11.21 Type 2 diabetes mellitus with diabetic nephropathy (principal) ==

== ENCOUNTER → 2021-12-02 | Outpatient (CLI) | payer OTHER, MEDICARE ==
[~2021-12-02] MED LIST changes: -LISI10TA15 PO; +LISI10TA24 PO
[2021-12-02 17:36] LABS: HEMOGLOBIN A1c 8.3 %
[2021-12-02 17:37] LABS: BLOOD UREA NITROGEN 24 MG/DL (7-18); CALCIUM LEVEL 9.5 MG/DL (8.8-10.2); CARBON DIOXIDE LEVEL 28 MEQ/L (21-32); CHLORIDE LEVEL 106 MEQ/L (98-107); CREATININE FOR GFR 1.15 MG/DL (0.70-1.30); GLOMERULAR FILTRATION RATE > 60.0 (>42); GLUCOSE, FASTING 148 MG/DL (70-100); POTASSIUM SERUM 5.4 MEQ/L (3.5-5.1); SODIUM LEVEL 142 MEQ/L (136-145)
== END ==
LOC: M PLALAB 14:59
PROVIDERS: ATTEND Family Medicine
DX: E11.21 Type 2 diabetes mellitus with diabetic nephropathy (principal)

== ENCOUNTER → 2021-12-14 | Outpatient (CLI) | payer OTHER, MEDICARE ==
[2021-12-14 15:52] LABS: BLOOD UREA NITROGEN 18 MG/DL (7-18); CALCIUM LEVEL 9.4 MG/DL (8.8-10.2); CARBON DIOXIDE LEVEL 26 MEQ/L (21-32); CHLORIDE LEVEL 107 MEQ/L (98-107); CREATININE FOR GFR 1.14 MG/DL (0.70-1.30); GLOMERULAR FILTRATION RATE > 60.0 (>42); GLUCOSE, FASTING 156 MG/DL (70-100); POTASSIUM SERUM 5.1 MEQ/L (3.5-5.1); SODIUM LEVEL 140 MEQ/L (136-145)
== END ==
LOC: M PLALAB 11:14
PROVIDERS: ATTEND Family Medicine
DX: E87.5 Hyperkalemia (principal)

== ENCOUNTER → 2022-03-05 | Outpatient (CLI) | payer OTHER, MEDICARE ==
[2022-03-05 11:42] LABS: CHOLESTEROL RISK RATIO 3.5 (<5)
== END ==
LOC: M PLALAB 09:00
PROVIDERS: ATTEND Family Medicine
DX: E11.21 Type 2 diabetes mellitus with diabetic nephropathy (principal); E78.2 Mixed hyperlipidemia